=== PATIENT | female | born 1990 | race Caucasian/White ===

== ENCOUNTER 2018-06-03 19:36 | Emergency (ER) | payer MEDICAID, OTHER ==
[~2018-06-03] VITALS: Ht 154.9 cm; Wt 51.5 kg
[2018-06-03 20:16] LABS: URINE HCG NEGATIVE (NEG)
[2018-06-03 20:17] LABS: CLARITY,URINE CLOUDY (Clear); COLOR,URINE YELLOW (Yellow); GLUCOSE, URINE NEGATIVE (Neg); KETONES,URINE NEGATIVE (Neg); LEUKOCYTE ESTERASE ,URINE NEGATIVE (Neg); NITRITES, URINE NEGATIVE (Neg); OCCULT BLOOD,URINE TRACE-INTACT (Neg); PROTEIN,URINE NEGATIVE (Neg); UROBILINOGEN,URINE 0.2 E.U/dL (0.2-1.0)
[2018-06-03 20:19] LABS: UA COLLECTION TYPE VOIDED
[2018-06-03 20:26] LABS: BACTERIA,URINE NONE SEEN /HPF (Neg); RBC,URINE NONE SEEN /HPF (0-2); SQUAMOUS EPITHELIAL CELL,UR FEW /LPF (FEW); WBC,URINE 0-4 /HPF (0-4)
[2018-06-03 20:27] LABS: AMORPHOUS PHOSPHATES 4+
[2018-06-03] MEDS ORDERED: normal saline 1000ML IV soln IVB ONE (20:35)
[2018-06-03 20:55] LABS: BASOPHILS # (AUTO) 0.1 X10'3 (0-0.2); BASOPHILS % (AUTO) 0.8 % (0-1); EOSINOPHILS % (AUTO) 0.7 % (0-6); HEMATOCRIT 41.3 % (35.0-45.0); HEMOGLOBIN 14.1 g/dl (12.0-16.0); LYMPHOCYTES # (AUTO) 0.8 X10'3 (1.1-4.8); LYMPHOCYTES % (AUTO) 12.3 % (21-51); MEAN CORPUSCULAR HEMOGLOBIN 31.3 PG (27.0-31.0); MEAN PLATELET VOLUME 8.9 FL (7.4-10.4); MONOCYTES # (AUTO) 0.4 X10'3 (0-0.9); MONOCYTES % (AUTO) 6.2 % (2-12); NEUTROPHILS # (AUTO) 5.5 X10'3 (1.8-7.7); PLATELET COUNT 186 X10'3 (140-440); RED BLOOD COUNT 4.49 X10'6 (4.20-5.60); RED CELL DISTRIBUTION WIDTH 12.6 % (11.5-14.5); WHITE BLOOD COUNT 6.9 X10'3 (4.5-11.0)
[2018-06-03 21:15] LABS: ALANINE AMINOTRANSFERASE 16 U/L (12-78); ALKALINE PHOSPHATASE 80 IU/L (46-116); ANION GAP 9 (8-16); BILIRUBIN,TOTAL 0.4 MG/DL (0.1-1.0); BLOOD UREA NITROGEN 10 MG/DL (7-18); BUN/CREATININE RATIO 14.5 (6.6-38.0); CALCIUM 9.1 MG/DL (8.5-10.1); CHLORIDE 102 MMOL/L (99-107); CREATININE 0.69 MG/DL (0.40-0.90); GLUCOSE 99 MG/DL (70-104); LIPASE 1048 U/L (73-393); SODIUM 135 MMOL/L (135-145); TOTAL CARBON DIOXIDE 24.4 MMOL/L (24-32); eGFR > 90 ML/MIN
[2018-06-03 21:23] LABS: ASPARTATE AMINO TRANSFERASE 38 U/L (10-37)
[2018-06-03] MEDS ORDERED: calcium chloride 100 MG/1 ML inj IV ONE (21:45)
[2018-06-03] MEDS ORDERED: insulin regular, human 10 units/0.1 ml syringe IV ONE (21:45)
[2018-06-03] MEDS ORDERED: sodium bicarbonate (0.9mEq/ml) 44.6 mEq/50ml syringe IV ONE (21:45)
[2018-06-03] MEDS ORDERED: furosemide 40mg/4ml inj IV ONE (21:45)
[2018-06-03] MEDS ORDERED: dextrose 50%-water 50ml dispensing syringe IV ONE (21:45)
[2018-06-03] MEDS ORDERED: sodium bicarbonate 1 MEQ/1 ml inj IV ONE (21:55)
[2018-06-03 22:28] VITALS: BP 112/59
[2018-06-03] MEDS ORDERED: ondansetron/PF 4mg/2ml inj IV ONE (22:40)
[2018-06-03] MEDS ORDERED: potassium Cl 20 mEq SR tablet PO STA (23:22)
[2018-06-03] MEDS ORDERED: CIPR-259 PO (23:29)
[2018-06-03] MEDS ORDERED: METR500T PO (23:29)
[2018-06-03] MEDS ORDERED: POTA10TA36 PO (23:29)
== END 2018-06-04 | disposition home or self-care (01) ==
LOC: ER 19:37
DX: K52.89 Other specified noninfective gastroenteritis and colitis (principal); K62.5 Hemorrhage of anus and rectum; R10.31 Right lower quadrant pain; R10.32 Left lower quadrant pain; Z87.442 Personal history of urinary calculi; Z79.899 Other long term (current) drug therapy
CPT/HCPCS: 36415; 74176; 80053; 81001; 81025; 83690; 84132; 85025; 96374; 96375; 99284; J1815; J1940; J2405; J7030